=== PATIENT | female | born 2000 | race Caucasian/White ===

== ENCOUNTER 2024-09-26 14:57 | Emergency (ER) | payer OTHER ==
--- OUTSIDE RECORDS SUMMARY | 2024-09-26 15:00 | XMS REPORT | Continuity of Care Document ---
Author Name Unknown Address [address] [facility] [address] [place] [address] [facility] Address [address] [facility] [address] [place] [address] Care Team Providers Care Supervisor Paper Machine Name Role Phone JOJO KEY Primary Care Physician Unavailab Shiva Saxena Attending Clinician Unavailable Shannon Valente Attending Clinician Unavailable DR JOJO KEY Attending Clinician Unavailable [phone] Attending Clinician Unavailable [id number] Attending Clinician Unavailable Venu Attending Clinician Unavailable Shannon Valente Admitting Clinician Unavailable DR JOJO KEY Admitting Clinician Unavailable Shield Admitting Clinician Unavailable Payers Payer Name Policy Type Policy Number Effective Date Expirati on Date Source [facility] [id number] [facility] [id number] [place] [id number] 2022 00:00:00 [employer] (PERSONAL INJURY) [id number] Problems Condition Name Condition Details Condition Category Status Onset Date Resolution Date Last Treatment Date Treating Clinician Comments Source Acute tonsilliti s Acute Tonsilliti s Problem Active [facility] Influenza Influenza Problem Active [facility] Asthma Asthma Problem Active [facility] Asthmatic bronchitis Asthmatic Bronchitis Problem Active [facility] Lower urinary tract infectious disease Lower Urinary Tract Infectious Disease Problem Active [facility] Low back pain Low Back Pain Problem Active [facility] Shoulder strain Shoulder Strain Problem Active [facility] Allergies, Adverse Reactions, Alerts Allergy Name Allergy Type Status Severity Reaction(s) Onset Date Inactive Date Treating Clinician Comments Source Penicill ins DA Active [facility] RASH 2023-06 00:00: 00 [facility] PCN (penicil eula) Drug allergy (disorde r) Active [facility] PENICILL INS Allergy to substanc e [facility] (penicil eula) DA Active UNKNOWN [facility] Social History Smoking Status Start Date Stop Date Source Unknown if ever smoked Never Smoker [facility] Medications Ordered Medication Name Filled Medication Name Start Date Stop Date Current Medication? Ordering Clinician Indication Dosage Frequency Signature (SIG) Comments Components Source albuterol sulfate HFA 90 mcg/actuati on aerosol inhaler Inhale 2 puffs every 4-6 hours by inhalation route as needed for 30 days. albuterol sulfate HFA 90 mcg/actuati on aerosol inhaler Inhale 2 puffs every 4-6 hours by inhalation route as needed for 30 days. No 2puff(s ) Q5H albuterol sulfate HFA 90 mcg/actuat ion aerosol inhaler Inhale 2 puffs every 4-6 hours by inhalation route as needed for 30 days. [facility] Immunizations Ordered Immunization Name Filled Immunization Name Date Status Comments Source influenza, injectable, quadrivalent, preservative free influenza, injectable, quadrivalent, preservative free 2021-03-30 10:44:00 Completed [facility] Hep B, adult Hep B, adult 2020-08-14 09:28:27 Completed [facility] influenza, injectable, quadrivalent influenza, injectable, quadrivalent 2020-04-02 00:00:00 Completed [facility] varicella varicella 2020-03-12 14:51:11 Completed [facility] Hep B, adolescent or pediatric Hep B, adolescent or pediatric 2020-03-12 14:50:23 Completed [facility] meningococcal MCV4P meningococcal MCV4P 11:50:00 Completed [facility] meningococcal B, OMV meningococcal B, OMV 2016-15 16:27:29 Completed [facility] HPV9 HPV9 2016-06-28 17:35:08 Completed [facility] HPV, quadrivalent HPV, quadrivalent 2013-02-05 00:00:00 Completed [facility] Tdap Tdap 2012-05-24 00:00:00 Completed [facility] MCV4, unspecified formulation MCV4, unspecified formulation 2012-05-24 00:00:00 Completed [facility] Hep A, ped/adol, 2 dose Hep A, ped/adol, 2 dose 2005-10-19 00:00:00 Completed [facility] DTaP, 5 pertussis antigens DTaP, 5 pertussis antigens 2004-05-22 00:00:00 Completed [facility] IPV IPV 2004-05-22 00:00:00 Completed [facility] MMR MMR 2004-05-22 00:00:00 Completed [facility] Hib (PRP-OMP) Hib (PRP-OMP) 2001-05-23 00:00:00 Completed [facility] Pneumococcal Conjugate, unspecified formulation Pneumococcal Conjugate, unspecified formulation 2000 00:00:00 Completed [facility] Vital Signs Vital Name Observation Time Observation Value Comments S ource BP Diastolic 2024-05-03 00:00:00 75 mm[Hg] [facility] BMI (Body Mass Index) 2024-05-03 00:00:00 19.8 kg/m2 [facility] Height 2024-05-03 00:00:00 65.5 [in_i] [facility] BP Systolic 2024-05-03 00:00:00 112 mm[Hg] [facility] Body Weight 2024-05-03 00:00:00 1936 [[facility]_av[facility] Diastolic 2022-09-13 00:00:00 87 mm[Hg] [facility] Height 2022-09-13 00:00:00 65.5 [in_i] [facility] BMI (Body Mass Index) 2022-09-13 00:00:00 20.6 kg/m2 [facility] BP Systolic 2022-09-13 00:00:00 136 mm[Hg] [facility] Body Weight 2022-09-13 00:00:00 2016 [oz_av] [facility] BP Diastolic 2022-08-03 00:00:00 85 mm[Hg] [facility] Height 2022-08-03 00:00:00 65.5 [in_i] [facility] BMI (Body Mass Index) 2022-08-03 00:00:00 20.5 kg/m2 [facility] BP Systolic 2022-08-03 00:00:00 126 mm[Hg] [facility] Body Weight 2022-08-03 00:00:00 1999 [oz_av] [facility] BP Diastolic 2021-03-30 00:00:00 71 mm[Hg] [facility] Height 2021-03-30 00:00:00 65.5 [in_i] [facility] BMI (Body Mass Index) 2021-03-30 00:00:00 20.6 kg/m2 [facility] BP Systolic 2021-03-30 00:00:00 114 mm[Hg] [facility] Body Weight 2021-03-30 00:00:00 2016 [oz_av] [facility] Height 2020-08-14 00:00:00 65.5 [in_i] [facility] BP Diastolic 2020-04-10 00:00:00 78 mm[Hg] [facility] Height 2020-04-10 00:00:00 65.5 [in_i] [facility] BMI (Body Mass Index) 2020-04-10 00:00:00 20.8 kg/m2 [facility] BP Systolic 2020-04-10 00:00:00 122 mm[Hg] [facility] Body Weight 2020-04-10 00:00:00 2031 [oz_av] [facility] Height 2020-03-12 00:00:00 65.5 [in_i] [facility] Height 2020-02-06 00:00:00 65.5 [in_i] [facility] BP Diastolic 2020-01-31 00:00:00 72 mm[Hg] [facility] Height 2020-01-31 00:00:00 65.5 [in_i] [facility] BMI (Body Mass Index) 2020-01-31 00:00:00 20.5 kg/m2 [facility] BP Systolic 2020-01-31 00:00:00 110 mm[Hg] [facility] Body Weight 2020-01-31 00:00:00 2000 [oz_av] [facility] BP Diastolic 2018-12-19 00:00:00 77 mm[Hg] [facility] Height 2018-12-19 00:00:00 65.5 [in_i] [facility] BMI (Body Mass Index) 2018-12-19 00:00:00 20 kg/m2 [facility] BP Systolic 2018-12-19 00:00:00 109 mm[Hg] [facility] Body Weight 2018-12-19 00:00:00 1952 [oz_av] [facility] BP Diastolic 2018-09-07 00:00:00 70 mm[Hg] [facility] Height 2018-09-07 00:00:00 65.5 [in_i] [facility] BMI (Body Mass Index) 2018-09-07 00:00:00 20.7 kg/m2 [facility] BP Systolic 2018-09-07 00:00:00 108 mm[Hg] [facility] Body Weight 2018-09-07 00:00:00 2018 [oz_av] [facility] Encounters Start Date/Time End Date/Time Encounter Type Admission Type Attending [facility] Care Facility Care Department Encounter ID Source 2022-06-15 14:43:00 Outpatient ELCAMPO E[facility] [id number] [facility] 2022-06-04 15:03:11 Outpatient ELCAMPO ELCAMPO [id number] [facility] 2021-11-11 15:00:49 Outpatient ELCAMPO E[facility] [id number] [facility] 2024-06-19 18:23:00 2024-06-19 20:14:00 Emergency EM Shiva Miranda HCACL JESSICA [id number] 23 [facility] 2024-06-15 14:00:00 2024-06-15 14:00:00 Outpatient Shannon Dozier HCACL ADMI [id number] 50 [facility] 2024-05-03 00:00:00 2024-05-03 00:00:00 Talisha Lea, FRIEND OF THE COURT: [address], [address], [place] [address] , Ph. MMG [facility] [address] [facility] 2023-06-16 14:52:00 2023-06-16 16:45:00 Outpatient [id number] 2023-06-16 14:52:00 2023-06-16 16:45:00 Outpatient JOJO OTTO [id number] [id number] [id number] [facility] 2023-06-16 14:52:00 2023-06-16 14:52:00 Gynecologi c examinatio n 06/16/2023 [id number] SNOMED-CT [id number] 2022-09-13 00:00:00 2022-09-13 00:00:00 [facility] [id number] [facility] 2022-09-13 00:00:00 2022-09-13 00:00:00 Talisha Lea, FRIEND OF THE COURT: [address], [address], [place] [address] , [id number] 2022-08-03 00:00:00 2022-08-03 00:00:00 Outpatient Shield [facility]G [facility] 2022-08-03 00:00:00 2022-08-03 00:00:00 Outpatient Shield MMG MM 214 [facility] 2022-08-03 00:00:00 2022-08-03 00:00:00 Talisha Lea, FRIEND OF THE COURT: [address], [place] [address] , [facility] [id number] [facility] 2022-08-02 00:00:00 2022-08-02 00:00:00 Outpatient Shield MMG MM 212 [facility] 2022-06-15 14:43:00 2022-06-15 15:17:00 Outpatient Sarbjit JOJO KEY [id number] [facility] [id number] [facility] 2021-04-08 04:42:00 2021-04-08 04:42:00 Outpatient Shield MMG MMG [id number] [facility] 2021-03-31 09:59:00 2021-03-31 09:59:00 Outpatient Shield MMG MMG [id number] [facility] 2021-03-30 00:00:00 2021-03-30 00:00:00 Talisha Lea, FRIEND OF THE COURT: [address], [place] [address] , [facility]. [facility] 1010 [facility] 2021-03-13 05:28:00 2021-03-13 05:28:00 Outpatient Shield MMG MMG [id number] [facility] 2020-08-14 00:00:00 2020-08-14 00:00:00 Talisha Lea, FRIEND OF THE COURT: [address], [place] [address] , Ph. Shield MMG [facility] 0225 [facility] 2020-05-07 02:18:00 2020-05-07 02:18:00 Outpatient Shield MMG MMG [id number] [facility] 2020-04-15 03:35:00 2020-04-15 03:35:00 Outpatient Shield MMG MMG [id number] [facility] 2020-04-10 00:00:00 2020-04-10 00:00:00 Talisha Lea, FRIEND OF THE COURT: [address] [facility] [address], [place] [address] , Ph. Shield MMG [facility] 1022 [facility] 2020-03-12 00:00:00 2020-03-12 00:00:00 Talisha Lea, FRIEND OF THE COURT: [address], [place] [address] , Ph. Shield MMG [facility] 0923 [facility] 2020-02-26 11:54:00 2020-02-26 11:54:00 Outpatient Shield MMG MMG [id number] [facility] 2020-02-06 00:00:00 2020-02-06 00:00:00 Talisha Lea, FRIEND OF THE COURT: [address], [place] [address] , Ph. Shield MMG [facility] 0819 [facility] 2020-02-04 00:00:00 2020-02-04 00:00:00 Talisha Lea, FRIEND OF THE COURT: [address], [place] [address] , Ph. [facility] 816 [facility] 2020-01-31 00:00:00 2020-01-31 00:00:00 Talisha Lea, FRIEND OF THE COURT: [address], [place] [address] , Ph. [facility] 812 [facility] 2020-01-30 01:11:00 2020-01-30 01:11:00 Outpatient [facility] 8[address] [facility] 2019-11-13 00:00:00 2019-11-13 00:00:00 Talisha Lea, FRIEND OF THE COURT: [address], [place] [address] , Ph. [facility] 26 [facility] 2018-12-19 00:00:00 2018-12-19 00:00:00 Talisha Lea, FRIEND OF THE COURT: [address], [address], [place] [address] , Ph. [facility] 0702 [facility] 2018-09-07 00:00:00 2018-09-07 00:00:00 Talisha Lea, FRIEND OF THE COURT: [address], [address], [place] [address] , Ph. [facility] 0321 [facility] Results Test Description Test Time Test Comments Results Result Co mments Source UA RFLX MICR CULT IF [id number] 20:23:00* Test Item Value Reference Range Interpretation Comme nts UA COLOR (test code = COLU) LIGHT YELLOW YEL/STRAW UA APPEARANCE (test code = APPU) CLEAR CLEAR UA GLUCOSE DIPSTICK (test co de = DGLUU) NEGATIVE NEGATIVE UA BILIRUBIN DIPSTICK (test code = BILU) NEGATIVE NEGATIVE UA KETONE DIPSTICK (test cod e = KETU) NEGATIVE NEGATIVE UA SPECIFIC GRAVITY (test co de = SGU) 1.005 1.005-1.030 N UA BLOOD DIPSTICK (test code = JOSE) 5+ NEGATIVE UA PH DIPSTICK (test code = MARILUZ) 6.5 5.0-7.0 N UA PROTEIN DIPSTICK (test co de = PROU) 1+ NEGATIVE A UA UROBILINIOGEN DIPSTICK (test code = URO) 0.2 mg/dL 0.2-1.0 UA NITRITE DIPSTICK (test co de = LANNY) NEGATIVE NEGATIVE UA LEUKOCYTE ESTERASE DIPSTI CK (test code = LEUU) 1+ NEGATIVE A UA WBC (test code = WBCU) 4-9 WBC/HPF 0-3 A UA RBC (test code = RBCU) >50 RBC/HPF 0-3 A UA WBC NO REFLEX (test code = WBCUCL) 4-9 WBC/HPF 0-3 A UA BACTERIA (test code = BACU) NONE SEEN /HPF NONE SEEN UA SQUAMOUS CELLS (test code = SQU) 0-5 /HPF NONE SEEN UA MUCUS (test code = MUCU) TRACE /LPF NONE SEEN Indication for culture: Suprapubic PainSpecimen Description: CLEAN CATCHBASIC METABOLIC [id number] 20:19:00* Test Item Value Reference Range Interpretation Comme nts SODIUM (test code = NA) 139 mEq/L 134-147 N POTASSIUM (test code = K) 4.0 mEq/L 3.4-5.0 N CHLORIDE (test code = CL) 104 mEq/L 100-108 N CARBON DIOXIDE (test code = CO2) 25 mEq/l 21-33 N ANION GAP (test code = GAP) 14 0-20 N GLUCOSE (test code = GLU) 92 mg/dL 77-141 N BLOOD UREA NITROGEN (test code = BUN) 15 mg/dL 7-25 N GLOMERULAR FILTRATION RATE (test code = GFR) 64.8 110-120 L The Glomerular Filtration Rate is a calculated parameterbased on serum Creatinine, patient age and sex. GFR valuesless than 60 mL/min/1.73 square meters are indicative ofChronic Kidney Disease. Values less than 15 mL/min/1.73square meters indicate Kidney failure. The calculation forGFR is based on the CKD-EPI (2020) calculation. This formulais race indifferent and is the recommended formula for GFRby the National Kidney Foundation for Adults.The GFR will not calculate if the sex is unknown or if thepatient's age is <18 years. CREATININE (test code = CREAT) 1.2 mg/dL 0.6-1.3 N CALCIUM (test code = CA) 9.4 mg/dL 8.0-10.5 N HEPATIC FUNCTION [id number] 20:19:00* Test Item Value Reference Range Interpretation Comme nts TOTAL PROTEIN (test code = PROT) 7.1 g/dL 6.4-8.2 N ALBUMIN (test code = ALB) 3.90 g/dL 3.4-5.0 N BILIRUBIN TOTAL (test code = BILT) 0.50 mg/dL 0.0-1.0 N BILIRUBIN DIRECT (test code = BILD) 0.10 MG/DL 0.1-0.3 N BILIRUBIN INDIRECT (test cod e = BILIND) 0.40 MG/DL SGOT/AST (test code = AST) 19 IUnit/L 8-34 N SGPT/ALT (test code = ALT) 18 IUnit/L 10-49 N ALKALINE PHOSPHATASE TOTAL ( test code = ALKP) 65 IUnit/L 20-125 N [id number] 20:19:00* Test Item Value Reference Range Interpretation Comme nts LIPASE (test code = LIP) 33 U/L 13-57 N CBC W/AUTO [id number] 20:05:00* Test Item Value Reference Range Interpretation Comme nts WHITE BLOOD CELL (test code = WBC) 7.1 x10 3/uL 4.5-11.0 N RED BLOOD CELL (test code = RBC) 4.10 x10 6/uL 3.54-5.02 N HEMOGLOBIN (test code = HGB) 11.8 g/dL 11.0-15.0 N HEMATOCRIT (test code = HCT) 34.0 % 33.0-45.0 N MEAN CELL VOLUME (test code = MCV) 82.9 fL 81.0-99.0 N MEAN CELL HGB (test code = MCH) 28.8 pg 27.0-33.0 N MEAN CELL HGB CONCETRATION (test code = MCHC) 34.7 g/dL 33.0-37.0 N RED CELL DISTRIBUTION WIDTH CV (test code = RDW) 12.0 % 11.5-14.5 N RED CELL DISTRIBUTION WIDTH SD (test code = RDW-SD) 36.3 fL 37.0-54.0 L PLATELET COUNT (test code = PLT) 209 x10 3/uL 150-400 N MEAN PLATELET VOLUME (test c ode = MPV) 8.8 fL 7.0-9.0 N NEUTROPHIL % (test code = NT%) 62.1 % 56.0-77.0 N IMMATURE GRANULOCYTE % (test code = IG%) 0.4 % 0.0-2.0 N LYMPHOCYTE % (test code = LY%) 28.7 % 14.0-32.0 N MONOCYTE % (test code = MO%) 4.3 % 4.8-9.0 L EOSINOPHIL % (test code = EO%) 3.9 % 0.3-3.7 H BASOPHIL % (test code = BA%) 0.6 % 0.0-2.0 N NUCLEATED RBC % (test code = NRBC%) 0.0 % 0-0 N NEUTROPHIL # (test code = NT#) 4.43 x10 3/uL 2.0-7.6 N IMMATURE GRANULOCYTE # (test code = IG#) 0.03 x10 3/uL 0.00-0.03 N LYMPHOCYTE # (test code = LY#) 2.05 x10 3/uL 1.0-3.8 N MONOCYTE # (test code = MO#) 0.31 x10 3/uL 0.1-0.8 N EOSINOPHIL # (test code = EO#) 0.28 x10 3/uL 0.0-0.2 H BASOPHIL # (test code = BA#) 0.04 x10 3/uL 0.0-0.2 N NUCLEATED RBC # (test code = NRBC#) 0.00 x10 3/uL 0.0-0.1 N Urinalysis macro (dipstick) panel - [id number] 14:28:00* Test Item Value Reference Range Interpretation Comme nts Leukocytes (test code = Leukocytes) Small Nitrite (test code = Nitrite) negative Urobilinogen (test code = Urobilinogen) .2 Protein (test code = Protein) Negative pH (test code = pH) 6.0 Blood (test code = Blood) Small Specific Tupman (test code = Specific Tupman) 1.005 Ketone (test code = Ketone) Negative Bilirubin (test code = Bilirubin) Negative Glucose (test code = Glucose) Negative Appearance (test code = Appearance) Clear Color (test code = Color) Yellow [facility] [Diameter] --3 days post dose larry tuberculin [id number] 14:29:00* Test Item Value Reference Range Interpretation Comme nts TB (test code = TB) negative [facility] virus surface Ab [Titer] in [id number] 07:54:00* Test Item Value Reference Range Interpretation Comme nts Hepatitis B virus surface Ab [Titer] in Serum (test code = 53607-1) 5.5 mIU/mL immunity>9.9 L [facility] immunity, [id number] 07:54:00* Test Item Value Reference Range Interpretation Comme nts Mumps virus IgG Ab [Titer] i n Serum (test code = 55114-8) 55.0 AU/mL immune >10.9 rubella quantitative (IgG) ( test code = rubella quantitative (IgG)) 3.61 index immune >0.99 Measles virus IgG Ab [Presen ce] in Serum (test code = 30644-7) 103.0 AU/mL immune >16.4 [facility] IgG Ab [Presence] in Serum 2020-01-31 07:54:00* Test Item Value Reference Range Interpretation Comme nts varicella zoster Ab,IgG (maurizio t code = varicella zoster Ab,IgG) 158 index immune >165 L [facility]regnancy test, [id number] 11:17:00* Test Item Value Reference Range Interpretation Comme nts Choriogonadotropin (pregnanc y test) [Presence] in Urine (test code = 2106-3) negative neg [facility] Notes Date/Time Note Provider Source 2024-06-19 18:35:00 [facility] EMERGENCY PROVIDER REPORT REPORT#:[id number] REPORT STATUS: Signed DATE:06/19/24 TIME: 183 PATIENT: ELDER REINA UNIT #: [id number] ROOM/BED: : 00 AGE: 24 SEX:F PCP PHYS: Shannon Valente MD SERVICE AUTHOR: SabrinaJose G FIRE [employer]ARD INSPECTOR AGACNP REP SRV REP SRV TM: 1834 * ALL edits or amendments must be made on the electronic/computer document * Jose G Bennett 06/19/241834: HPI- Female Free Text HPI Notes Free Text HPI Notes 24-year-old female presents to the emergency room with complaint of abdominal cramping. States that she underwent a D C 4 days ago was doing fine but today developed increased cramping unrelieved with ibuprofen. General Confirmed Patient Yes Initial Greet Date/Time 06/19/241822 Provider in Triage Greet Note I have greeted and performed a focused rapid initial assessment of this patient. A comprehensive ED assessment and evaluation of the patient, analysis of all test results, and completion of the medical decision-making process will be conducted by additional ED providers. MSE Not Complete The medical screening exam is not complete. Further evaluation and/or treatment is required. The patient will be re-directed to the emergency department. Past Medical History - Adult Stated Complaint CRAMPING Allergies Coded Allergies: Penicillins (Mild, RASH 06/19/24) Physical Exam Vital Signs Vital Signs First Documented: Result Date Time Pulse Ox 99 06/19 1837 B/P 138/88 06/19 1837 B/P Mean 104 06/19 1837 O2 Delivery Room air 06/19 1837 Temp 97.6 06/19 1837 Pulse 85 06/19 1837 Resp 17 06/19 1837 Last Documented: Result Date Time Pulse Ox 99 06/19 1837 B/P 138/88 06/19 1837 B/P Mean 104 06/19 1837 O2 Delivery Room air 06/19 1837 Temp 97.6 06/19 1837 Pulse 85 06/19 1837 Resp 17 06/19 1837 Interpretation Diagnostics Lab Results Interpretation Results Laboratory Tests 06/19/241951: [Embedded Image Not Available] Laboratory Tests: 06/19 1952 Chemistry Sodium (134 - 147 mEq/L) 139 Potassium (3.4 - 5.0 mEq/L) 4.0 Chloride (100 - 108 mEq/L) 104 Carbon Dioxide (21 - 33 mEq/l) 25 Anion Gap (0 - 20) 14 BUN (7 - 25 mg/dL) 15 Creatinine (0.6 - 1.3 mg/dL) 1.2 Glomerular Filtr Rate (110 - 120) 64.8 L Glucose (77 - 141 mg/dL) 92 Calcium (8.0 - 10.5 mg/dL) 9.4 Total Bilirubin (0.0 - 1.0 mg/dL) 0.50 Direct Bilirubin (0.1 - 0.3 MG/DL) 0.10 Indirect Bilirubin (MG/DL) 0.40 AST (8 - 34 IUnit/L) 19 ALT (10 - 49 IUnit/L) 18 Total Alk Phosphatase (20 - 125 IUnit/L) 65 Total Protein (6.4 - 8.2 g/dL) 7.1 Albumin (3.4 - 5.0 g/dL) 3.90 Lipase (13 - 57 U/L) 33 Hematology WBC (4.5 - 11.0 x10 3/uL) 7.1 RBC (3.54 - 5.02 x10 6/uL) 4.10 Hgb (11.0 - 15.0 g/dL) 11.8 Hct (33.0 - 45.0 %) 34.0 MCV (81.0 - 99.0 fL) 82.9 MCH (27.0 - 33.0 pg) 28.8 MCHC (33.0 - 37.0 g/dL) 34.7 RDW (11.5 - 14.5 %) 12.0 Plt Count (150 - 400 x10 3/uL) 209 MPV (7.0 - 9.0 fL) 8.8 Neut % (Auto) (56.0 - 77.0 %) 62.1 Lymph % (Auto) (14.0 - 32.0 %) 28.7 Kendall % (Auto) (4.8 - 9.0 %) 4.3 L Eos % (Auto) (0.3 - 3.7 %) 3.9 H Baso % (Auto) (0.0 - 2.0 %) 0.6 Neut # (Auto) (2.0 - 7.6 x10 3/uL) 4.43 Lymph # (Auto) (1.0 - 3.8 x10 3/uL) 2.05 Kendall # (Auto) (0.1 - 0.8 x10 3/uL) 0.31 Eos # (Auto) (0.0 - 0.2 x10 3/uL) 0.28 H Baso # (Auto) (0.0 - 0.2 x10 3/uL) 0.04 Abs Immat Gran (auto) (0.00 - 0.03 x10 3/uL) 0.03 Immature Gran % (0.0 - 2.0 %) 0.4 Nucleated RBC % (0 - 0 %) 0.0 Nucleated RBCs # (Man) (0.0 - 0.1 x10 3/uL) 0.00 Urines Urine Color (YEL/STRAW) LIGHT YELLOW Urine Appearance (CLEAR) CLEAR Urine pH (5.0 - 7.0) 6.5 Ur Specific [place]man (1.005 - 1.030) 1.005 Urine Protein (NEGATIVE) 1+ H Urine Glucose (UA) (NEGATIVE) NEGATIVE Urine Ketones (NEGATIVE) NEGATIVE Urine Blood (NEGATIVE) 5+ Urine Nitrite (NEGATIVE) NEGATIVE Urine Bilirubin (NEGATIVE) NEGATIVE Urine Urobilinogen (0.2 - 1.0 mg/dL) 0.2 Ur Leukocyte Esterase (NEGATIVE) 1+ H Urine RBC (0 - 3 RBC/HPF) >50 H Urine WBC (0 - 3 WBC/HPF) 4-9 H Ur Squamous Epith Cells (NONE SEEN /HPF) 0-5 Urine Bacteria (NONE SEEN /HPF) NONE SEEN Urine Mucus (NONE SEEN /LPF) TRACE Patient Discharge Departure Vital Signs/Condition Vital Signs First Documented: Result Date Time Pulse Ox 99 06/19 1837 B/P 138/88 06/19 1837 B/P Mean 104 06/19 1837 O2 Delivery Room air 06/19 1837 Temp 97.6 06/19 1837 Pulse 85 06/19 1837 Resp 17 06/19 1837 Last Documented: Result Date Time Pulse Ox 99 06/19 1837 B/P 138/88 06/19 1837 B/P Mean 104 06/19 1837 O2 Delivery Room air 06/19 1837 Temp 97.6 06/19 1837 Pulse 85 06/19 1837 Resp 17 06/19 1837 All vital signs available at the time of this entry have been reviewed. Shiva Miranda 06/19/242034: HPI- Female Presentation Chief Complaint Abdominal pain Physical Exam Vital Signs Review of Vital Signs Reviewed Patient Discharge Departure Clinical Impression Clinical Impression Primary Impression: Abdominal pain Disposition Decision Other Left Prior to MSE Yes at 2027 at 2037 RPT #[id number] END OF REPORT [facility]
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
[2024-09-26 18:54] VITALS: TEMP 97.6; O2SAT 100
[2024-09-26 18:56] VITALS: BP 138/97
== END 2024-09-26 18:37 | disposition home or self-care (01) ==
LOC: ER 14:57
DX: O26.891 Other specified pregnancy related conditions, first trimester (principal); Z3A.12 12 weeks gestation of pregnancy; V49.49XA Driver injured in collision with other motor vehicles in traffic accident, initial encounter
CPT/HCPCS: 76801